=== PATIENT | female | born 2005 | race Two or more races ===

== ENCOUNTER 2024-04-21 09:08 | Emergency (ER) | payer MEDICAID, OTHER ==
[~2024-04-21] VITALS: Ht 152.4 cm; Wt 80.6 kg
[2024-04-21 09:34] VITALS: BP 105/72; PULSE 120; RESP 18; TEMP 98.9; O2SAT 96
[2024-04-21] MEDS ORDERED: BENZ200C64 PO (09:35)
[2024-04-21] MEDS ORDERED: LORA-1130 PO (09:35)
--- NOTE | 2024-04-21 09:35 | ED.PDOC ---
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 History Family History Family History: Reviewed,noncontributory to illness, No family hx of Cancer, No family hx of DM, No family hx of Heart chloe, No family hx of HTN, No family hx ofKidney chloe, No family hx of Liver chloe, No family hx of Lung chloe, No family hx of Stroke Social History Smoker: Non-Smoker Alcohol: Denies ETOH Use Drugs: Denies Drug Use Constitutional: denies: chills, diaphoresis, fatigue, fever, malaise, sweats, weakness, others EENTM: reports: nasal discharge, nose congestion; denies: blurred vision, double vision, ear bleeding, ear discharge, ear drainage, ear pain, ear ringing, eye pain, eye redness, hearing loss, mouth pain, mouth swelling, nose bleeding, nose pain, photophobia, tearing, throat pain, throat swelling, voice changes, others Respiratory: reports: cough; denies: hemoptysis, orthopnea, SOB at rest, shortness of breath, SOB with excertion, stridor, wheezing, others Cardiovascular: denies: chest pain, dizzy spells, diaphoresis, Dyspnea on exertion, edema, irregular heart beat, left arm pain, lightheadedness, palpitations, PND, syncope, others Gastrointestinal: denies: abdomen distended, abdominal pain, blood streaked bowels, constipated, diarrhea, dysphagia, difficulty swallowing, hematemesis, melena, nausea, poor appetite, poor fluid intake, rectal bleeding, rectal pain, vomiting, others Genitourinary: denies: abnormal vagina bleeding, burning, dyspareunia, dysuria, flank pain, frequency, hematuria, incontinence, pain, , vagina discharge, urgency, others Neurological: denies: dizziness, fainting, headache, left sided numbness, left sided weakness, numbness, paresthesia, pre-existing deficit, right sided numbness, right sided weakness, seizure, speech problems, tingling, tremors, weakness, others Musculoskeletal: denies: back pain, gout, joint pain, joint swelling, muscle pain, muscle stiffness, neck pain, others Integumetry: denies: bruises, change in color, change in hair/nails, dryness, laceration, lesions, lumps, rash, wounds, others Allergic/Immunocompromised: denies: Difficulty Healing, Frequent Infections, Hives, Itching, others Hematologic/Lymphatic: denies: anemia, blood clots, easy bleeding, easy bruising, swollen glands, others Endocrine: denies: excessive hunger, excessive sweating, excessive thirst, excessive urination, flushing, intolerance to cold, intolerance to heat, unexplained weight gain, unexplained weight loss, others Psychiatric: denies: anxiety, bipolar disorder, depression, hopeless, panic disorder, schizophrenia, sleepless, suicidal, others All Other Systems: Reviewed and Negative Physical Exam General Appearance: No Apparent Distress, Normal HEENT: Normal ENT Inspection (except of sniffling, clear post nasal discharge, nasal congesion), Pharynx Normal, TMs Normal Neck: Full Range of Motion, Non-Tender, Normal, Normal Inspection Respiratory: Chest Non-Tender, Lungs Clear, No Accessory Muscle Use, No Respiratory Distress, Normal Breath Sounds Cardiovascular: No Edema, No JVD, No Murmur, No Gallop, Normal Peripheral Pulses, Regular Rate/Rhythm Breast Exam: Deferred Gastrointestinal: No Organomegaly, Non Tender, No Pulsatile Mass, Normal Bowel Sounds, Soft Genitalia: Deferred Pelvic: Deferred Rectal: Deferred Extremities: No calf tenderness, Normal capillary refill, Normal inspection, Normal range of motion, Non-tender, No pedal edema Musculoskeletal : Apperance: Normal Neurologic: Alert, wallpaper inspector II-XII nml as Tested, No Motor Deficits, Normal Affect, Normal Mood, No Sensory Deficits Cerebellar Function: Normal Reflexes: Normal Skin: Dry, Normal Color, Warm Lymphatic: No Adenopathy Was a procedure done? Was a procedure done?: No Differential Dx Considerations may include: viral uri, allergic rhinitis, pneumonia, pharyngitis, OM, tonsillitis, sinusitis X-Ray, Labs, Meds, VS Vital Signs Date Time Temp Pulse Resp B/P (MAP) Pulse Ox O2 Delivery O2 Flow Rate FiO2 04/21/24 09:19 18 96 Room Air* 0 N/A Bi-Pap+ 04/21/24 09:16 98.9 120 18 105/76 (86) 96 Time of 1ST Reevaluation: 09:33 Reevaluation 1ST: Unchanged Patient Education/Counseling: Diagnosis, Treatment, Prognosis, Need For Follow Up Family Education/Counseling: Diagnosis, Treatment, Prognosis, Need For Follow Up Additional Information pt has a viral uri. she is stable for discharge Departure 1 Departure Time of Disposition: 09:34 Impression: Primary Impression: Viral URI with cough Disposition: 01 HOME / SELF CARE / HOMELESS Condition: Good e-Prescriptions Benzonatate (Benzonatate) 200 Mg Cap 1 CAP PO TID, #30 CAP Prov: PETE SERRANO MD 04/21/24 Loratadine & Pseudoephedrine (Claritin-D 24 Hour 10-240 mg) 1 Tab Tab 1 TAB PO DAILY for 10 Days, #10 TAB Prov: PETE SERRANO MD 04/21/24 Discharged With: Self, Relative, Friend Critical Care Note Critical Care Time?: No Stability Stability form required: No PETE SERRANO MD Apr 21, 2024 09:35
== END 2024-04-21 09:42 | disposition home or self-care (01) ==
LOC: ER 09:08
DX: J06.9 Acute upper respiratory infection, unspecified (principal); B97.89 Other viral agents as the cause of diseases classified elsewhere

== ENCOUNTER 2024-10-03 14:41 | Emergency (ER) | payer MEDICAID, OTHER ==
[~2024-10-03] VITALS: Ht 152.4 cm; Wt 82.9 kg
[~2024-10-03 14:41] MED LIST: BENZ200C64 PO; LORA-1130 PO
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
[2024-10-03 15:52] LABS: Urine Protein, UAD Negative (Negative)
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
[2024-10-03] MEDS ORDERED: IBUP-1455 PO (17:09)
[2024-10-03 17:19] VITALS: BP 125/86; PULSE 83; RESP 18; TEMP 97.9; O2SAT 96
== END 2024-10-03 17:21 | disposition home or self-care (01) ==
LOC: ER 14:41
DX: S42.012A Anterior displaced fracture of sternal end of left clavicle, initial encounter for closed fracture (principal); Z79.899 Other long term (current) drug therapy; V43.52XA Car driver injured in collision with other type car in traffic accident, initial encounter; Y93.89 Activity, other specified; Y92.89 Other specified places as the place of occurrence of the external cause; Y99.8 Other external cause status
CPT/HCPCS: 71045; 73000; 81001; 81025